=== PATIENT | male | born 1965 | race American Indian/Alaskan Native ===

== ENCOUNTER 2019-03-08 12:05 | Emergency (ER) | payer MEDICAID ==
[2019-03-08 12:47] VITALS: BP 141/80
--- NOTE | 2019-03-08 12:47 | Event Note ---
ED Screening Note Date of service: 03/08/19 Time: 12:45 ED Screening Note: 53 y o male presents to Ed cc of left hand swelling and pain x 2 days hx of carpal tunel, surgical fix 2 years ago fall x 2 weeks ago no assessment This initial assessment/diagnostic orders/clinical plan/treatment(s) is/are subject to change based on patients health status, clinical progression and re- assessment by fellow clinical providers in the ED. Further treatment and workup at subsequent clinical providers discretion. Patient/guardian urged not to elope from the ED as their condition may be serious if not clinically assessed and managed. Initial orders include: xr hand ACC eval
--- NOTE | 2019-03-08 13:52 | XRay Report ---
Left hand, 3 views INDICATION: Hand pain. COMPARISON: None. IMPRESSION: The patient is wearing 2 rings on the fourth digit which could not be removed and limits this examination. The bony structures are grossly intact. No fracture or erosive joint pathology is identified. There are moderate degenerative changes at the base of the thumb. Previous internal fixa tion of the distal radius is noted. No acute osseous injury or soft tissue abnormality is appreciated . Signer Name: Andrew Wynn Jr, MD Signed: 03/08/2019 1:47 PM Workstation Name: [id number]
--- NOTE | 2019-03-08 14:24 | Emergency Department Report ---
Upper Extremity - HPI Chief Complaint: Extremity Injury, Upper Stated Complaint: (L) HAND SWOLLEN Time Seen by Provider: 03/08/19 14:05 Upper Extremity: Right Hand Occurred When: >5 Days Mechanism: Fall Severity: severe Symptoms: Yes Pain with Movement, Yes Limited Range of Movement, Yes Swelling, No Deformity, No Numbness, No Weakness, No Bruising/Ecchymosis, No Laceration or Abrasion Other History: Patient is a 53-year-old male with no past medical history that presents emergency room with complaints of left hand pain and swelling for greater than 5 days. Patient states she fell 2 weeks ago. Patient states she had a surgery for carpal tunnel release 2 years ago. Patient states she has tried to call multiple orthopedists has not been able to set an appointment. Patient came to the ER because the pain was so severe. Patient states the pain is 8 out of 10. Patient states the pain is worse with movement and better with rest and not moving his hand. Patient states that he has not taken anything for the pain. ED Review of Systems ROS: Stated complaint: (L) HAND SWOLLEN Other details as noted in HPI Comment: All other systems reviewed and negative Constitutional: denies: chills, fever Eyes: denies: eye pain, eye discharge, vision change ENT: denies: ear pain, throat pain Respiratory: denies: cough, shortness of breath, wheezing Cardiovascular: denies: chest pain, palpitations Endocrine: no symptoms reported Gastrointestinal: denies: abdominal pain, nausea, diarrhea Genitourinary: denies: urgency, dysuria Musculoskeletal: denies: back pain, joint swelling, arthralgia Skin: denies: rash, lesions Neurological: denies: headache, weakness, paresthesias Psychiatric: denies: anxiety, depression Hematological/Lymphatic: denies: easy bleeding, easy bruising ED Past Medical Hx - Past Medical History Previous Medical History?: No - Surgical History Past Surgical History?: Yes Additional Surgical History: carpal tunnel SURGERY TO LEFT HAND-2017 - Family History Family history: no significant - Social History Smoking Status: Never Smoker Substance Use Type: None - Medications Home Medications: Home Medications Medication Instructions Recorded Confirmed Last Taken Type Acetaminophen/Codeine [Tylenol 1 tab PO Q4HR PRN #10 tablet 03/08/19 Unknown Rx /Codeine # 3 tab] Naproxen [Naprosyn] 500 mg PO BID #15 tablet 03/08/19 Unknown Rx Upper Extremity Exam - Exam General: Vital signs noted. No distress. Alert and acting appropriately. Head and Torso: No HEENT Abnormality, No Neck Tenderness, No Chest/Lungs Abnorm ality, No Abdominal Tenderness, No Back Tenderness Shoulder Exam: Yes Normal Range of Motion in Shoulder, No Shoulder Tenderness, No Clavicle Tenderness, No Shoulder Deformity, No AC Joint Tenderness Arm Exam: No Arm/Humerus Tenderness, No Arm Deformity Elbow: No Elbow Tenderness, No Normal Range of Motion in Elbow, No Elbow Deformity Forearm: No Forearm Tenderness, No Forearm Deformity, No Pain with Pronation, No Pain with Supination Wrist: Yes Normal ROM in Wrist, No Wrist Tenderness, No Wrist Deformity, No Snuffbox Tenderness, No Pain with Axial Thumb Compression Hand: Yes Hand Tenderness (left), Yes Normal ROM in Digit(s), No Hand Deformity, No Digit Tenderness, No Digit(s) Deformity, No Tendon Dysfunction CMS Exam: No Broken Skin, No Normal Distal Pulses, No Normal Capillary Refill, No Normal Distal Sensation ED Course Vital Signs 03/08/19 12:46 Temperature 97.7 F Pulse Rate 58 L Respiratory 18 Rate Blood Pressure 141/80 O2 Sat by Pulse 100 Oximetry - Reevaluation(s) Reevaluation #1: I discussed all results with patient. I discussed plan of care with patient. Patient agrees plan of care. Patient will be discharged home. Patient given discharge instructions. Patient voiced understanding of discharge instructions. 03/08/19 14:24 ED Medical Decision Making - Radiology Data Radiology results: report reviewed Left hand, 3 views INDICATION: Hand pain. COMPARISON: None. IMPRESSION: The patient is wearing 2 rings on the fourth digit which could not be removed and limits this examination. The bony structures are grossly intact. No fracture or erosive joint pathology is identified. There are moderate degenerative changes at the base of the thumb. Previous internal fixation of the distal radius is noted. No acute osseous injury or soft tissue abnormality is appreciated. - Medical Decision Making Patient is a 53-year-old male that presents emergency room for left hand pain and swelling. Patient's exam was normal except for tenderness in the left hand. Patient's x-ray was negative for acute osseous findings. Patient has a previous surgery to his wrist and carpal tunnel surgery 2 years ago. Patient finding consistent with a contusion. Patient will be given anti-inflammatories and pain medications. Patient was given a follow-up to an orthopedist. Patient given discharge instructions. - Differential Diagnosis hand pain. Contusion. Fracture strain sprain. Critical care attestation.: If time is entered above; I have spent that time in minutes in the direct care of this critically ill patient, excluding procedure time. ED Disposition Clinical Impression: Hand pain, left Contusion of left hand Qualifiers: Encounter type: initial encounter Qualified Code(s): S60.222A - Contusion of left hand, initial encounter Disposition: TO HOME OR SELFCARE Is pt being admited?: No Does the pt Need Aspirin: No Condition: Stable Instructions: Contusion in Adults (ED), Hand Sprain (ED) Additional Instructions: Patient to follow-up with primary care in 2-3 days. Patient to follow-up with orthopedist in 2-3 days. Patient to return to ER if condition worsens. Patient take Tylenol or ibuprofen when necessary for pain. Patient to rest. Patient to take meds as directed. Patient to elevate limb. Prescriptions: Naproxen [Naprosyn] 500 mg PO BID #15 tablet Acetaminophen/Codeine [Tylenol /Codeine # 3 tab] 1 tab PO Q4HR PRN #10 tablet PRN Reason: Pain Referrals: JOHNATHAN AGRAWAL MD [Staff Physician] - 2-3 Days Time of Disposition: 14:28
== END 2019-03-08 14:36 | disposition home or self-care (01) ==
LOC: ED 12:05
DX: S60.222A Contusion of left hand, initial encounter (principal); Z79.899 Other long term (current) drug therapy; X58.XXXA Exposure to other specified factors, initial encounter; Y93.89 Activity, other specified; Y92.89 Other specified places as the place of occurrence of the external cause; Y99.8 Other external cause status
CPT/HCPCS: 99283